=== PATIENT | male | born 1930 | race Caucasian/White ===

== ENCOUNTER → 2017-07-08 | Outpatient (CLI) | payer MEDICARE, MEDICAID ==
[~2017-07-08] MED LIST: APAP500 PO; ARANESP40 MCG/1 M IJ; ARANESP40 MCG/1 M SUBQ; ASPIR 8181 MG PO; ATORVASTATIN CA40 MG PO; BACTROBAN CREAM30 G1 TOP; BENADRYL25 MG PO; BENTYL 10 MG CA10 M1 PO; BETAMETHASONE D50 G2 TP; CIPROFLOXACIN500 M1 PO; CLINDAMYCIN 1%60 M1 TP; COREG3.125 MG PO; D-20002000 UNIT PO; DAYTIME COLD &237 ML PO; DEMADEX20 MG PO; DILATRATE-SR40 MG PO; DOXYCYCLINE 10100 MG PO; FAMCICLOVIR500 MG PO; FLOMAX0.4 MG PO; FLONASE 0.05%50 MCG NASAL; GUAIFENESIN ER600 MG PO; HYDRALAZINE 2525 MG PO; HYDROCODONE-AP1 EAC6 PO; HYDROCORTISO28.35 G1 TOP; HYDROCORTISONE30 G9 TOP; IMDUR 30 MG TAB30 M1 PO; IMDUR 60 MG TAB60 M1 PO; IRON325 MG PO; IRON325 PO; KLOR-CON 1010 MEQ PO; LANTUS100 UNIT/M SUBQ; LASIX 40 MG TAB40 M2 PO; LASIX 80 MG TAB80 MG PO; LEVAQUIN 250 M250 MG PO; LEVAQUIN 500 M500 M1 PO; LEVEMIR SUBQ; MINOCYCLINE HC100 M2 PO; MIRALAX17 GM PO; MUCUS ER1200 MG PO; NITROGLYCERIN0.4 MG SUBLING; NOVOLOG100 UNIT/1 SUBQ; PLAVIX 75 MG TA75 M1 PO; PRED FORTE 1% EY5 M1 OP; PREDNISONE 20 M20 MG PO; PREPARATION H1 EAC2 TP; PROSCAR 5MG TABL5 MG PO; PROTONIX40 M1 PO; REFRESH CLASSI1 EACH OP; SENNA8.6 MG PO; TUMS PO; TYLENOL325 MG PO; VITAMIN D1000 UNI1 PO; VITAMIN D3400 UNIT PO; ZAROXOLYN 5MG TA5 MG PO
== END ==
LOC: M.WC 07-03 01:40
DX: E11.621 Type 2 diabetes mellitus with foot ulcer (principal); L97.511 Non-pressure chronic ulcer of other part of right foot limited to breakdown of skin; E11.22 Type 2 diabetes mellitus with diabetic chronic kidney disease; N18.9 Chronic kidney disease, unspecified; I50.9 Heart failure, unspecified; I48.91 Unspecified atrial fibrillation; Z86.73 Personal history of transient ischemic attack (TIA), and cerebral infarction without residual deficits; Z87.891 Personal history of nicotine dependence

== ENCOUNTER → 2017-07-15 | Outpatient (CLI) | payer MEDICARE, MEDICAID | LOC: M.WC 05:23 | DX: E11.621 Type 2 diabetes mellitus with foot ulcer (principal); L97.511 Non-pressure chronic ulcer of other part of right foot limited to breakdown of skin; I50.9 Heart failure, unspecified; N18.9 Chronic kidney disease, unspecified; I48.91 Unspecified atrial fibrillation; Z86.73 Personal history of transient ischemic attack (TIA), and cerebral infarction without residual deficits; Z87.891 Personal history of nicotine dependence; Z79.82 Long term (current) use of aspirin ==

== ENCOUNTER 2017-08-22 09:31 | Inpatient (IN) | payer MEDICARE, MEDICAID ==
[~2017-08-22] VITALS: Ht 167.6 cm; Wt 74.4 kg
[2017-08-22 09:31] VITALS: BP 180/83
[~2017-08-22 09:31] MED LIST changes: -LEVAQUIN 250 M250 MG PO; -MUCUS ER1200 MG PO
[2017-08-22 10:23] LABS: HEMATOCRIT 33.9 % (42.0-52.0); HEMOGLOBIN 11.1 gm/dL (14.0-18.0); MCH 35.8 pg (26.0-34.0); MCHC 32.8 g/dL (28.0-37.0); MCV 109.3 fL (80.0-100.0); MPV 8.9 fl. (7.2-11.1); NUCLEATED RBCS 0 /100WBC; PLATELET COUNT* 116 thou/uL (150-400); RDW-CV 14.8 % (10.5-14.5); WBC 5.7 thou/uL (4.0-11.0)
[2017-08-22 10:27] LABS: CALCIUM 8.4 mg/dL (8.5-10.1); CREATININE 1.9 mg/dL (0.6-1.3); POTASSIUM 4.4 mmol/L (3.5-5.1)
[2017-08-22 10:31] LABS: ALBUMIN 2.9 g/dL (3.4-5.0)
[2017-08-22 10:46] LABS: TOTAL BILIRUBIN 0.4 mg/dL (<0.1-1.0); TOTAL PROTEIN 6.9 g/dL (6.4-8.2); TROPONIN-I LEVEL 0.52 ng/mL (<0.06)
[2017-08-22 10:47] LABS: ABSOLUTE BASOPHILS 0.1 thou/uL (0.0-0.2); ABSOLUTE LYMPHOCYTES 0.2 thou/uL (0.8-5.3); ABSOLUTE MONOCYTES 0.5 thou/uL (0.0-1.2); MACROCYTES 1+; PLATELET ESTIMATE ADEQUATE
[2017-08-22 10:48] LABS: HYPOCHROMASIA Occasional
[2017-08-22] MEDS ORDERED: KLOR-CON 1010 MEQ PO (17:00)
[2017-08-22] MEDS ORDERED: MUCUS ER1200 MG PO (17:01)
[2017-08-22 18:05] VITALS: BP 172/81
[2017-08-22 18:05] LABS: URINE BILIRUBIN NEGATIVE (Negative); URINE BLOOD TRACE (Negative); URINE CLARITY CLEAR; URINE COLOR YELLOW; URINE GLUCOSE-RANDOM NEGATIVE (Negative); URINE KETONES NEGATIVE (Negative); URINE LEUKOCYTES-REFLEX NEGATIVE (Negative); URINE NITRITE-REFLEX NEGATIVE (Negative); URINE PROTEIN 2+ (Negative); URINE UROBILINOGEN 0.2 E.U./dl (0.2-1.0)
--- NOTE | 2017-08-22 18:11 | EKG ---
[place] [address] ELECTROCARDIOGRAM REPORT Name: LISETTE WIN Room: [address] ADM IN .R.#: [id number] Admission: 08/22/17 Attend Phys: Real Smith, Discharge: Date of : [birth year] Report #: [id number] THIS REPORT FOR: //name// [facility] ED Test Date: 2017-08-22 Test Time: 09:41:14 Pat Name: LISETTE WIN Department: Room: [facility] Gender: M Psychiatric Nurse Practitioner: Marycarmen RUSSO : 1930 Requested By: Chip Hurd Order Number: [id number] MD: Fernie Barnes Measurements Intervals [place] Rate: 63 P: 41 AZ: 224 QRS: 86 QRSD: 160 T: 15 QT: 481 QTc: 493 Interpretive Statements Sinus rhythm Prolonged [place] interval Right bundle branch block Compared to ECG 01/27/2017 23:26:15 T-wave abnormality no longer present Electronically Signed On 08-22-2017 18:11:44 CDT by Fernie Barnes [email or web address] <ELECTRONICALLY SIGNED> By: Fernie Barnes MD, FACC 08/22/17 1811 0941 0941 Fernie Barnes MD, [facility] /EPI
[2017-08-22 18:15] LABS: CRYSTALS None Seen /LPF (None Seen); HYALINE CASTS 4-10 Moderate /LPF (None Seen); MUCUS None Seen strn/LPF (None Seen); SQUAMOUS 0-3 Few /LPF (0-3)
[2017-08-22 18:16] LABS: BACTERIA-REFLEX 1-9 Few /HPF (None Seen); URINE RBC 0-2 Rare /HPF (0-2); URINE WBC-REFLEX None Seen /HPF (0-5)
[2017-08-22 18:26] VITALS: BP 170/88
--- NOTE | 2017-08-22 19:03 | NUR ---
RECIEVED REPORT FROM [facility] AND ASSUMED CARE OF PT @ 1805. PT A/O X4,VSS,TRACING 1ST DEGREE BBB, LUNGS SOUNDS CLEAR,BM TODAY, IV LEFT AC NS RUNNING @ 80ML/HR. PT IS CALM AND COOPERATIVE BUT LAYS IN BED WITH EYES CLOSED AND ONLY RESPONDS TO QUESTIONS. PT DENIES PAIN AT TIME OF ASSESSMENT. PT UP WITH TWO ASSIST AND WALKER. PT WAS LEFT RESTING IN BED WITH CALL LIGHT AND FALL PRECAUTIONS IN PLACE.HOURLY ROUNDING COMPLETED FOR PT SAFETY.
[2017-08-22 20:00] VITALS: BP 155/76
[2017-08-22 20:30] VITALS: BP 155/76
[2017-08-23 00:12] VITALS: BP 160/69
[2017-08-23 03:49] VITALS: BP 155/62
--- NOTE | 2017-08-23 05:54 | NUR ---
ASSUMED CARE AROUND 1930. PT A/OX4, PLEASANT BUT DEMANDING AT TIMES. RESTED SOME TONIGHT, FREQUENTLY ASKING WHAT TIME IT WAS. DENIED ANY PAIN. TELE TRACING SR/1D/BBB, ALICIA AT TIMES DOWN TO 50'S. VSS, AFEBRILE. ON 2L NC. IVF INFUSING ORDERED. REPOSITIONED DURING NIGHT. BILAT TUBI PATTERN MOLDER REMOVED LAST NIGHT PER PT REQUEST. VOIDING PER URINAL. SEE CHARTING. CALL LIGHT IN REACH, BEDALARM ON, WILL CONTINUE WITH PLAN OF CARE.
[2017-08-23 06:01] LABS: HEMATOCRIT 34.6 % (42.0-52.0); HEMOGLOBIN 11.3 gm/dL (14.0-18.0); MCHC 32.7 g/dL (28.0-37.0); MPV 8.9 fl. (7.2-11.1); RBC 3.15 mil/uL (4.50-6.00); RDW-CV 14.8 % (10.5-14.5); WBC 4.3 thou/uL (4.0-11.0)
[2017-08-23 06:27] LABS: ALBUMIN 2.6 g/dL (3.4-5.0); CALCIUM 8.7 mg/dL (8.5-10.1); CREATININE 1.6 mg/dL (0.6-1.3); MAGNESIUM 2.3 mg/dL (1.8-2.4); POTASSIUM 4.9 mmol/L (3.5-5.1); TOTAL BILIRUBIN 0.3 mg/dL (<0.1-1.0); TOTAL PROTEIN 6.4 g/dL (6.4-8.2); TROPONIN-I LEVEL 0.59 ng/mL (<0.06)
[2017-08-23 08:00] VITALS: BP 150/64
[2017-08-23 12:00] VITALS: BP 162/62
[2017-08-23 16:00] VITALS: BP 165/66
--- NOTE | 2017-08-23 17:39 | NUR ---
ASSUMED CARE OF PT AT 0730. PT A&0X4, FORGETFUL AT TIMES. NEURO CHECKS COMPLETED Q4H. REFER TO CHARTING. 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 AM COREG HELD DUE TO BRADYCARDIA. REFER TO EMAR. 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 +1 EDEMA NOTED TO BILATERAL LE'S. CARDIOLOGY HERE TO SEE PT. STAT BNP ORDERED PER DR JERRY. RESULTS RELAYED TO DR JERRY AND ORDERS RECEIVED FOR LASIX 20 MG IVP ONE TIME. TROPONIN TRENDING DOWN. PT ON 2L NC SAT UPPER 90'S. DENIES ANY SHORTNESS OF BREATH OR PAIN THROUGHOUT SHIFT. PT UP TO RECLINER MUTIPLE TIMES THROUGHOUT SHIFT AND FOR EACH MEAL. TOLERATED WELL. PT VOIDS PER URINAL. IVF. PT AND OT ORDERED TODAY. PT TO BE NPO AFTER MIDNIGHT FOR ABDOMINAL ULTRASOUND IN AM. FAMILY AT BEDSIDE THROUGHOUT SHIFT AND UPDATED ON CARE PLAN. AM ASSESSMENT CHARTED. MEDICATIONS PER AUG. PT REPOSITIONED EVERY 2 HOURS FOR COMFORT. HOURLY ROUNDING OBSERVED. BED IN LOW POSITION. BED/CHAIR ALARM IN PLACE. FALL PRECAUTIONS IN PLACE. CALL LIGHT WITHIN REACH. WILL CONTINUE PLAN OF CARE.
[2017-08-23 20:00] VITALS: BP 148/61; BP 162/61
[2017-08-24 00:12] VITALS: BP 148/61
[2017-08-24 04:00] VITALS: BP 125/44
[2017-08-24 04:14] LABS: HEMATOCRIT 35.5 % (42.0-52.0); HEMOGLOBIN 11.6 gm/dL (14.0-18.0); MCH 35.8 pg (26.0-34.0); MCHC 32.7 g/dL (28.0-37.0); MCV 109.4 fL (80.0-100.0); RBC 3.24 mil/uL (4.50-6.00); RDW-CV 14.8 % (10.5-14.5); WBC 4.7 thou/uL (4.0-11.0)
[2017-08-24 04:29] LABS: CALCIUM 8.7 mg/dL (8.5-10.1); CREATININE 1.6 mg/dL (0.6-1.3); MAGNESIUM 2.1 mg/dL (1.8-2.4); POTASSIUM 4.6 mmol/L (3.5-5.1)
--- NOTE | 2017-08-24 06:35 | NUR ---
PATIENT AWAKE ON AND OFF THROUGHOUT THE NIGHT. CONT. IVF AT 80 HOUR, NO COMPLAINTS OF PAIN OR DISCOMFORT. ON SCHEDULED TYLENOL. TURN EVERY 2 HOURS, NO SIGN OF DISTRESS AT THIS TIME.
[2017-08-24 08:00] VITALS: BP 140/53
--- NOTE | 2017-08-24 09:30 | NUR ---
ASSUMED CARE OF PT AT 0730. PT RESTING IN BED REQUESTING BREAKFAST. PT NPO FOR ABDOMINAL ULTRASOUND. PT A&0X4, FORGETFUL. NEURO CHECKS Q4H. REFER TO CHARTING. EDEMA NOTED TO BILATERAL LE'S. DR JERRY HERE TO SEE PT. ORDERS RECEIVED FOR ONE TIME ORDER IV LASIX 40 MG IVP. REFER TO EMAR. PT TRACING SB WITH BBB ON THE INWEAVER. ON 2L NC SAT 98%. DENIES ANY SHORTNESS OF BREATH. PT COMPLAINS OF PAIN TO KNEES-08/16. TREATED WITH SCHEDULED TYLENOL WITH RELIEF. PT VOIDS PER URINAL-FREQUENTLY. PT UP WITH 1 ASSIST WALKER TO BATHROOM. AM ASSESSMENT CHARTED. MEDICATIONS PER AUG. PT REPOSITIONED EVERY 2 HOURS FOR COMFORT. HOURLY ROUNDING OBSERVED. BED IN LOW POSITION. BED ALARM IN PLACE. FALL PRECAUTIONS IN PLACE. CALL LIGHT WITHIN REACH. WILL CONTINUE PLAN OF CARE.
[2017-08-24 12:00] VITALS: BP 123/55
[2017-08-24 16:00] VITALS: BP 145/57
--- NOTE | 2017-08-24 18:08 | NUR ---
NO ACUTE CHANGES THROUGHOUT SHIFT. REFER TO CHARTING. PT UP TO BSC X2 WITH 1 ASSIST AND WALKER AND HAD MODERATE SIZE BOWEL MOVEMENT. PT USES URINAL FREQUENTLY. PT TO HAVE REPEAT CXR IN AM. IVF DISCONTINUED PER DR JAMISON. NEURO CHECKS COMPLETED Q4H. REFER TO CHARTING. PT UP TO RECLINER MULTIPLE TIMES THROUGHOUT SHIFT. TOLERATED WELL. PT TO HAVE ECHO TOMORROW 08/25. PT DENIES ANY PAIN THIS AFTERNOON. VISITORS AT BEDSIDE THIS AFTERNOON. 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 RATE IN THE 40-50'S. ON 2L NC SAT UPPER 90'S. DENIES ANY SHORTNESS OF BREATH. MEDICATIONS PER AUG. PT REPOSITIONED EVERY 2 HOURS FOR COMFORT. HOURLY ROUNDING OBSERVED. BED IN LOW POSITION. BED ALARM IN PLACE. FALL PRECAUTIONS IN PLACE. CALL LIGHT WITHIN REACH. WILL CONTINUE PLAN OF CARE.
[2017-08-24 20:00] VITALS: BP 163/65
[2017-08-25] VITALS (10 sets, daily range): BP systolic 124–176; BP diastolic 52–71
[2017-08-25 04:54] LABS: HEMATOCRIT 36.4 % (42.0-52.0); MCH 35.8 pg (26.0-34.0); MCV 108.4 fL (80.0-100.0); MPV 8.5 fl. (7.2-11.1); RBC 3.36 mil/uL (4.50-6.00); RDW-CV 14.4 % (10.5-14.5); WBC 5.4 thou/uL (4.0-11.0)
--- NOTE | 2017-08-25 04:57 | NUR ---
PATIENT PROGRESSING TOWARDS GOALS: NO NAUSEA/VOMITING/DIARRHEA NOTED THIS SHIFT. NO SYNCOPAL EPISODES AND PATIENT DENIES PAIN AND DISCOMFORT. PATIENT REMAINS ON 2L O2 NC WITH SATS >92%. PATIENT VOIDS PER URINAL FREQUENTLY. NEURO CHECKS COMPLETED Q4H, NO ABNORMALITIES NOTED. HOURLY ROUNDING OBSERVED. CALL LIGHT WITHIN REACH
[2017-08-25 05:28] LABS: CALCIUM 8.9 mg/dL (8.5-10.1); CREATININE 1.7 mg/dL (0.6-1.3); POTASSIUM 4.5 mmol/L (3.5-5.1)
[2017-08-25] MEDS ORDERED: PLAVIX 75 MG TA75 M1 PO (13:16)
[2017-08-25] MEDS ORDERED: FLOMAX0.4 MG PO (13:16)
--- NOTE | 2017-08-25 13:38 | NUR ---
MET WITH PT AND DOE/BARRETT TO DISCUSS HOME SITUATION/DC PLANNING. PT LIVES IN THE ASSISTED LIVING AT [facility]. PT AMBULATES WITH WALKER AND HAS W/C ALSO. HE USES O2 AT NIGHT. PT HAS HAD HH WITH [facility] AT HOME IN PAST BUT NOT CURRENTLY. DTR BARRETT IS DPOA. PT PLANS TO RETURN TO [facility] AT DC, POSSIBLY TODAY PENDING ECHO. CALLED AND FAXED DC ORDERS TO [facility]. LEFT MESSAGE FOR [facility]/V R[facility]AN ALSO. AWAIT TEST. DOE/BARRETT WILL TRANSPORT PT HOME AT DC, CAN BE REACHED AT [phone]
[2017-08-25] MEDS ORDERED: LEVAQUIN 250 M250 MG PO (15:16)
[2017-08-25] MEDS ORDERED: COREG3.125 MG PO (15:21)
--- NOTE | 2017-08-25 17:20 | 2DMMODE ---
[place] [address] 2 D/M-MODE ECHOCARDIOGRAM Name: LISETTE WIN Room: [address] IN [facility]#: [id number] Admission: 08/22/17 Attend Phys: Real Buenrostro Discharge: Date of : [birth year] Date of Service: 08/25/17 1719 Report #: [id number] THIS REPORT FOR: //name// APPROVED REPORT Study performed: 08/25/2017 13:28:50 EXAM: Comprehensive 2D, Doppler, and color-flow Echocardiogram Patient Location: In-Patient Room #: 229 BSA: 1.86 HR: 55 bpm BP: 149/55 mmHg Other Information Study Quality: Good Indications Congestive Heart Failure 2D Dimensions LVEF(%): 43.26 (>50%) IVSd: 14.36 (7-11mm) LVOT Diam: 20.20 (18-24mm) LVDd: 50.00 mm Ascending Ao: 31.46 (22-36mm) LVDs: 39.29 (25-40mm) Aortic Root: 28.19 mm Bunn's LVEF: 43.26 % Volumes Left Atrial Volume (Systole) LA ESV Index: 27.10 mL/m2 Aortic Valve AoV Peak Hany.: 1.11 m/s AO Peak Gr.: 4.95 mmHg LVOT Max P.63 mmHg AO Mean Gr.: 2.80 mmHg LVOT Mean P.08 mmHg LVOT Max V: 0.81 m/s AO V2 VTI: 24.28 cm LVOT Mean V: 0.46 m/s ZHANG (VTI): 2.12 cm2 LVOT V1 VTI: 16.11 cm Mitral Valve MV Peak Gr.: 6.10 mmHg MV Mean Gr.: 3.03 mmHg E/A Ratio: 1.12 [place] [address] 2 D/M-MODE ECHOCARDIOGRAM Name: LISETTE WIN Room: [address] IN .R.#: [id number] Admission: 08/22/17 Attend Phys: Real Buenrostro Discharge: Date of : [birth year] Date of Service: 08/25/17 1719 Report #: [id number] MV Decel. Time: 140.89 ms MV E Max Hany.: 1.06 m/s MV PHT: 40.86 ms MVA (PHT): 5.38 cm2 TDI E/Lateral E': 15.14 E/Medial E': 21.20 Medial E' Hany.: 0.05 m/s Lateral E' Hany.: 0.07 m/s Pulmonary Valve PV Peak Hany.: 0.93 m/s PV Peak Gr.: 3.43 mmHg Tricuspid Valve TR Peak Gr.: 50.95 mmHg RVSP: 55.95 mmHg Left Ventricle The left ventricle is normal size. akinesis noted of the base of the inferior wall There is normal left ventricular wall thickness. Left ventricular systolic function is mildly decreased. LVEF is 35-40%. The left ventricular diastolic function is normal. Right Ventricle The right ventricle is normal size. The right ventricular systolic function is normal. Atria The left atrium size is normal. The right atrium size is normal. Aortic Valve Aortic valve is calcified. No aortic regurgitation is present. There is no aortic valvular stenosis. Mitral Valve There is mitral annular calcification. Mild mitral regurgitation. No evidence of mitral valve stenosis. Tricuspid Valve The tricuspid valve is normal in structure. Moderate tricuspid regurgitation. The RVSP is __55.9 mmHg. Pulmonic Valve The pulmonary valve is normal in structure. Mild [place]mon[place] [address] 2 D/M-MODE ECHOCARDIOGRAM Name: WINLISETTE Barrie Room: [address]#: [id number] Admission: 08/22/17 Attend Phys: Real Buenrostro Discharge: Date of : [birth year] Date of Service: 08/25/17 1719 Report #: [id number] Great Vessels The aortic root is normal in size. IVC is normal in size and collapses with >50% inspiration Pericardium There is no pericardial effusion. Pleural Effusion <Conclusion> LVEF is 35-40%. akinesis noted of the base of the inferior wall Aortic valve is calcified. Mild mitral regurgitation. Moderate tricuspid regurgitation. The RVSP is __55.9 mmHg. <ELECTRONICALLY SIGNED> By: Vargas Alexis MD, [facility] 08/25/171718 18 18 Vargas Alexis MD, FACC /INF
--- NOTE | 2017-08-25 17:46 | NUR ---
DISCHARGE ORDERS RECEIVED AND PREPARED. CARDIAC MONITORING AND IV ACCESS DISCONTINUED. DISCHARGE ORDERS DISCUSSED WITH PT AND FAMILY. VERBALIZED UNDERSTANDING. ALL QUESTIONS AND CONCERNS ANSWERED AT THIS TIME. PT DISCHARGING TO [facility], [facility]. COPY OF DISCHARGE PAPERWORK AND SCRIPTS [facility] AND SENT WITH DAUGHTER. PTS PERSONAL BELONGINGS GATHERED AND SENT WITH PT. PT ESCORTED OFF UNIT VIA W/C. PT LEFT IN PRIVATE VEHICLE. SPOKE WITH NURSE AT [place], GAVE REPORT.
--- NOTE | 2017-09-04 19:10 | CON ---
[address] [address] CONSULTATION Name: LISETTE WIN Room: [address] IN .R.#: [id number] Admission: 08/22/17 Attend Phys: Real Smith, Discharge: 08/25/17 Date of : [birth year] Report #: [id number] THIS REPORT FOR: //name// CC: Amari Smith DATE OF SERVICE: 08/23/2017 HISTORY OF PRESENT ILLNESS: This is an 86-year-old male patient who is not able to provide very good history because he is hard of hearing. I reviewed the patient's records and looks like this patient had some nausea, vomiting, and then had some difficulty walking. He was some diaphoretic at that time. He is feeling better. He said during this episode he was not able to walk, but subsequently he was able to walk. REVIEW OF SYSTEMS: Indicate that he lives in [facility]. He can walk with a walker. He did have diaphoresis. He has a pretty significant problem with multiple other things in the past including congestive heart failure, anemia, and -sided chest pain. His GFR is 41 and the record indicated that his troponin is also high. He may have a metal in his eye, they do not know whether it has been removed or not. His rest of the history is very difficult because is very hard of hearing, it does not look like he has any pacemaker. He is not complaining of any back pain or any constitutional symptom, any new dermatological or hematological, endocrine, or throat symptoms. I carried out the 14-point review of system partly from the record, partly from him and partly after I called the patient's daughter and talk to them. He also has a history of glaucoma and history of atrial fibrillation, he is not anticoagulated because of history of falls. 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 He also has a myeloproliferative disorder. This was his relevant 14-point review of system. PAST MEDICAL HISTORY: He lives in a care home and has a pretty significant coronary artery disease. FAMILY HISTORY: Negative for early age stroke. SOCIAL HISTORY: Does not smoke or drink any alcohol. PHYSICAL EXAMINATION: The patient's examination is difficult because he is very hard of hearing. He is alert. He is responsive. His speech looks unremarkable. I cannot tell about memory and fund of knowledge. I tried to do the cranial nerve examination, it was incomplete because he was not able to cooperate because of his hearing. He moves all four extremities. His position sense is difficult to tell because he is not able to cooperate. There is no meningeal sign. There is no carotid bruit. There is no thyroid mass. His cardiac examination shows irregular heart rate. No respiratory difficulty or rhonchi. Pulses are difficult to feel. [place] [address] CONSULTATION Name: LISETTE WIN Room: [address] IN [facility].#: [id number] Admission: 08/22/17 Attend Phys: Real Smith, Discharge: 08/25/17 Date of : [birth year] Report #: [id number] extremities. His blood pressure is 150/64, his pulse is 51 and it was low earlier, his temperature is 97.8. LABORATORY DATA: His labs indicate hemoglobin of 11.3. His GFR is only 41. He did have a CT scan of the head, which showed some sinusitis, but nothing in the brain, which is abnormal. IMPRESSION: It is very difficult to form in this patient. It is possible he had some nausea and vomiting and that led to vasovagal spell. The patient can also have a posterior fossa cerebrovascular accident and they can present like this. CT scan does not show any posterior fossa cerebrovascular accident, but CT scan missed that. I talked to the patient and then I do not think he understood everything and then I called the patient's daughter and talk to them. She indicated that he may have a metal in his eye. She does not know whether it has been removed or not. I talked to them about aggressive workup or be very conservative on him and not to do much testing. First, we talked about MRI, but then she decided to hold the MRI and I think that is reasonable in this patient. RECOMMENDATIONS: 1. I will ask PT, OT to ambulate her. 2. We will see what cardiology workup shows. Since options are limited and because of family conversation, we are going to hold the MR and see what the carotid Doppler shows and be conservative on her. More than 50 minutes of time was spent taking care of this patient and majority of that time was spent counseling the patient and subsequently the patient's daughter and coordinating his care. <ELECTRONICALLY SIGNED> By: Frankie Mccain MD 09/04/17 1910 1103 1215Frankie Mccain MD /nt
== END 2017-08-25 18:19 | DRG 177 ==
LOC: M.ERS 09:31 → M.TBA-ER 12:13 → M.2W 12:13
PROVIDERS: Emergency Medicine; Internal Medicine; ADMIT Family Medicine
DX: J69.0 Pneumonitis due to inhalation of food and vomit (principal); I50.43 Acute on chronic combined systolic (congestive) and diastolic (congestive) heart failure; E43 Unspecified severe protein-calorie malnutrition; I13.0 Hypertensive heart and chronic kidney disease with heart failure and stage 1 through stage 4 chronic kidney disease, or unspecified chronic kidney disease; N18.4 Chronic kidney disease, stage 4 (severe); J98.11 Atelectasis; C94.6 Myelodysplastic disease, not elsewhere classified; E11.22 Type 2 diabetes mellitus with diabetic chronic kidney disease; I25.10 Atherosclerotic heart disease of native coronary artery without angina pectoris; E78.5 Hyperlipidemia, unspecified; H40.9 Unspecified glaucoma; J44.9 Chronic obstructive pulmonary disease, unspecified; I48.2 Chronic atrial fibrillation; J32.9 Chronic sinusitis, unspecified; D53.9 Nutritional anemia, unspecified; K80.20 Calculus of gallbladder without cholecystitis without obstruction; I65.22 Occlusion and stenosis of left carotid artery; Z95.1 Presence of aortocoronary bypass graft; Z88.1 Allergy status to other antibiotic agents; Z88.0 Allergy status to penicillin; Z79.899 Other long term (current) drug therapy

== ENCOUNTER 2017-09-20 02:21 | Emergency (ER) | payer MEDICARE, MEDICAID ==
[~2017-09-20] VITALS: Ht 172.7 cm; Wt 72.6 kg
[~2017-09-20 02:21] MED LIST changes: +LEVAQUIN 250 M250 MG PO; +MUCUS ER1200 MG PO
[2017-09-20 03:07] LABS: ABSOLUTE EOSINOPHILS 0.1 thou/uL (0.0-0.7); ABSOLUTE LYMPHOCYTES 0.5 thou/uL (0.8-5.3); ABSOLUTE MONOCYTES 0.6 thou/uL (0.0-1.2); ABSOLUTE NEUTROPHILS 3.4 thou/uL (1.6-8.1); BASOPHILS 0.5 %; EOSINOPHILS 2.8 %; HEMATOCRIT 37.4 % (42.0-52.0); HEMOGLOBIN 12.2 gm/dL (14.0-18.0); LYMPHOCYTES 11.1 %; MCH 33.9 pg (26.0-34.0); MCHC 32.6 g/dL (28.0-37.0); MCV 103.9 fL (80.0-100.0); MONOCYTES 12.4 %; NUCLEATED RBCS 0 /100WBC; PLATELET COUNT* 143 thou/uL (150-400); POLYS 73.2 %; WBC 4.6 thou/uL (4.0-11.0)
[2017-09-20 03:26] LABS: CALCIUM 8.7 mg/dL (8.5-10.1); CREATININE 1.5 mg/dL (0.6-1.3); POTASSIUM 4.1 mmol/L (3.5-5.1)
[2017-09-20 03:31] LABS: ALBUMIN 2.4 g/dL (3.4-5.0); TOTAL BILIRUBIN 0.6 mg/dL (<0.1-1.0); TOTAL PROTEIN 6.5 g/dL (6.4-8.2)
[2017-09-20 03:32] LABS: ACETAMINOPHEN < 2 ug/mL (10-30); ALCOHOL < 10 mg/dL (<10); SALICYLATE < 2.8 mg/dL (2.8-20.0)
[2017-09-20 03:51] LABS: URINE BILIRUBIN NEGATIVE (Negative); URINE BLOOD 2+ (Negative); URINE CLARITY SL CLOUDY; URINE COLOR YELLOW; URINE GLUCOSE-RANDOM NEGATIVE (Negative); URINE KETONES NEGATIVE (Negative); URINE NITRITE-REFLEX NEGATIVE (Negative); URINE PROTEIN 2+ (Negative); URINE UROBILINOGEN 0.2 E.U./dl (0.2-1.0)
[2017-09-20 03:56] LABS: URINE LEUKOCYTES-REFLEX 3+ (Negative)
[2017-09-20 04:13] LABS: AMP/METHAMP Negative (Negative); BARBITURATES Negative (Negative); BENZODIAZEPINES Negative (Negative); COCAINE Negative (Negative); METHADONE Negative (Negative); OPIATES Negative (Negative); PCP Negative (Negative); THC Negative (Negative)
[2017-09-20 04:30] LABS: SQUAMOUS 0-3 Few /LPF (0-3)
[2017-09-20 04:31] LABS: BACTERIA-REFLEX >30 Many /HPF (None Seen); CRYSTALS None Seen /LPF (None Seen)
[2017-09-20 04:32] LABS: CASTS None Seen /LPF (None Seen)
[2017-09-20 09:06] VITALS: BP 169/62
== END 2017-09-20 09:06 ==
LOC: M.ERS 02:21
PROVIDERS: Emergency Medicine Emergency Medical Services
DX: R45.851 Suicidal ideations (principal); N39.0 Urinary tract infection, site not specified; F32.9 Major depressive disorder, single episode, unspecified; E78.5 Hyperlipidemia, unspecified; J44.9 Chronic obstructive pulmonary disease, unspecified; I48.91 Unspecified atrial fibrillation; E11.22 Type 2 diabetes mellitus with diabetic chronic kidney disease; N18.3 Chronic kidney disease, stage 3 (moderate); I50.30 Unspecified diastolic (congestive) heart failure; I25.10 Atherosclerotic heart disease of native coronary artery without angina pectoris; Z88.1 Allergy status to other antibiotic agents; Z88.0 Allergy status to penicillin